=== PATIENT | female | born 1980 | race Caucasian/White ===

== ENCOUNTER 2021-02-07 23:48 | Emergency (ER) | payer OTHER ==
[2021-02-08] MEDS ORDERED: Ondansetron 4 MG Tab.DIS PO ONE ×2 (01:29→03:49)
--- NOTE | 2021-02-08 03:48 | EDM.PDOC ---
ED HPI GENERAL MEDICAL PROBLEM - General Chief Complaint: General Stated Complaint: THROWING UP AND CHEST PAINS Time Seen by Provider: 02/07/21 23:55 - History of Present Illness INITIAL COMMENTS - FREE TEXT/NARRATIVE: 40-year-old female presents the emergency room with nausea and vomiting. For near the last couple of days the patient has had worsening nausea and developed vomiting this evening. She has some upper abdominal discomfort with this as well. She is not aware of any fevers or chills. No diarrhea or constipation. Patient has no history of abdominal surgeries. She has not had symptoms like this in the past. She is otherwise fairly healthy she does take an antidepressant her dose has been stable for the last 10 years. She has 1 or 2 drinks of alcohol a week. Patient is on a road trip and is from [facility] will be back home in a couple of weeks. Chest Pain Score (Numeric/FACES): 5 - Related Data Allergies Allergy/AdvReac Type Severity Reaction Status Date / Time No Known Allergies Allergy Verified 02/08/21 00:03 Home Meds: Home Meds PARoxetine HCl [Paxil] 20 mg PO DAILY 02/08/21 [History] Past Medical History - Past Surgical History GI Surgical History: Reports: Hernia Repair/Other Social & Family History - Tobacco Use Tobacco Use Status *Q: Never Tobacco User Second Hand Smoke Exposure: No - Recreational Drug Use Recreational Drug Use: No ED ROS GENERAL - Review of Systems Review Of Systems: See Below Constitutional: Reports: No Symptoms HEENT: Reports: No Symptoms Respiratory: Reports: No Symptoms Cardiovascular: Reports: No Symptoms Endocrine: Reports: No Symptoms GI/Abdominal: Reports: Abdominal Pain, Nausea, Vomiting. Denies: Constipation, Diarrhea : Reports: No Symptoms Musculoskeletal: Reports: No Symptoms Skin: Reports: No Symptoms Neurological: Reports: No Symptoms ED EXAM, GENERAL - Physical Exam Exam: See Below Exam Limited By: No Limitations General Appearance: Alert, No Apparent Distress Head: Atraumatic, Normocephalic Neck: Normal Inspection, Supple, Non-Tender, Full Range of Motion Respiratory/Chest: No Respiratory Distress, Lungs Clear, Normal Breath Sounds Cardiovascular: Regular Rate, Rhythm, No Edema, No Murmur GI/Abdominal: Normal Bowel Sounds, Soft, Tender (She has mostly right upper quadrant discomfort right over the gallbladder. No other significant abdominal discomfort noted. No lower or mid abdominal discomfort noted with palpation.). No: Guarding, Rigid, Rebound Neurological: Alert, Oriented, Normal Cognition Psychiatric: Normal Affect, Normal Mood #1 Interpretation EKG Date: 02/08/21 Rhythm: NSR Rate (Beats/Min): 67 Lesage: Normal P-Wave: Present QRS: Normal ST-T: Normal QT: Normal Comparison: NA - No Prior EKG EKG Interpretation Comments: Normal EKG Course - Vital Signs Last Recorded V/S: Last Vital Signs Temp 36.4 C 02/08/21 00:01 Pulse 61 02/08/21 00:01 Resp 16 02/08/21 00:01 BP 114/73 02/08/21 00:01 Pulse Ox 100 02/08/21 00:01 - Orders/Labs/Meds Orders: Active Orders 24 hr Category Date Time Status EKG 12 Lead [EKG Documentation Completion] [RC] STAT Care 02/08/21 00:37 Active Abdomen Ltd [US] Stat Exams 02/08/21 01:53 Taken Labs: Laboratory Tests 02/08/21 02/08/21 02/08/21 Range/Units 00:05 00:52 00:52 WBC 12.72 H (3.98-10.04) K/mm3 RBC 4.14 (3.98-5.22) M/mm3 Hgb 12.9 (11.2-15.7) gm/dl Hct 38.6 (34.1-44.9) % MCV 93.2 (79.4-94.8) fl MCH 31.2 (25.6-32.2) pg MCHC 33.4 (32.2-35.5) g/dl RDW Std Deviation 40.3 (36.4-46.3) fL Plt Count 309 (182-369) K/mm3 MPV 9.6 (9.4-12.3) fl Neutrophils % (Manual) 87 H (40-60) % Band Neutrophils % 0 (0-10) % Lymphocytes % (Manual) 8 L (20-40) % Atypical Lymphs % 0 % Immat Monocytes % (Man) 0 Monocytes % (Manual) 4 (2-10) % Eosinophils % (Manual) 1 (0.7-5.8) % Basophils % (Manual) 0 L (0.1-1.2) Metamyelocytes % 0 Myelocytes % 0 Promyelocytes % 0 Blast Cells % 0 Plasma Cell % (Manual) 0 Nucleated RBCs 0.0 % Platelet Estimate Adequate RBC Morph Comment Normal Sodium 141 (136-145) mEq/L Potassium 3.5 (3.5-5.1) mEq/L Chloride 105 (98-107) mEq/L Carbon Dioxide 26 (21-32) mEq/L Anion Gap 13.5 (5-15) BUN 19 H (7-18) mg/dL Creatinine 0.8 (0.55-1.02) mg/dL Est Cr Clr Drug Dosing 79.91 mL/min Estimated GFR (MDRD) > 60 (>60) mL/min BUN/Creatinine Ratio 23.8 H (14-18) Glucose 96 (70-99) mg/dL Calcium 9.1 (8.5-10.1) mg/dL Total Bilirubin 1.4 H (0.2-1.0) mg/dL Direct Bilirubin (0.0-0.2) mg/dl AST 215 H (15-37) U/L ALT 247 H (14-59) U/L Alkaline Phosphatase 123 H (46-116) U/L Troponin I < 0.017 (0.00-0.056) ng/mL Total Protein 7.2 (6.4-8.2) g/dl Albumin 3.6 (3.4-5.0) g/dl Globulin 3.6 gm/dL Albumin/Globulin Ratio 1.0 (1-2) Lipase (73-393) U/L HCG, Qual (NEGATIVE) SARS-CoV-2 RNA (CATRINA) Negative (NEGATIVE) 02/08/21 02/08/21 Range/Units 00:52 00:52 WBC (3.98-10.04) K/mm3 RBC (3.98-5.22) M/mm3 Hgb (11.2-15.7) gm/dl Hct (34.1-44.9) % MCV (79.4-94.8) fl MCH (25.6-32.2) pg MCHC (32.2-35.5) g/dl RDW Std Deviation (36.4-46.3) fL Plt Count (182-369) K/mm3 MPV (9.4-12.3) fl Neutrophils % (Manual) (40-60) % Band Neutrophils % (0-10) % Lymphocytes % (Manual) (20-40) % Atypical Lymphs % % Immat Monocytes % (Man) Monocytes % (Manual) (2-10) % Eosinophils % (Manual) (0.7-5.8) % Basophils % (Manual) (0.1-1.2) Metamyelocytes % Myelocytes % Promyelocytes % Blast Cells % Plasma Cell % (Manual) Nucleated RBCs % Platelet Estimate RBC Morph Comment Sodium (136-145) mEq/L Potassium (3.5-5.1) mEq/L Chloride (98-107) mEq/L Carbon Dioxide (21-32) mEq/L Anion Gap (5-15) BUN (7-18) mg/dL Creatinine (0.55-1.02) mg/dL Est Cr Clr Drug Dosing mL/min Estimated GFR (MDRD) (>60) mL/min BUN/Creatinine Ratio (14-18) Glucose (70-99) mg/dL Calcium (8.5-10.1) mg/dL Total Bilirubin (0.2-1.0) mg/dL Direct Bilirubin 0.40 H (0.0-0.2) mg/dl AST (15-37) U/L ALT (14-59) U/L Alkaline Phosphatase (46-116) U/L Troponin I (0.00-0.056) ng/mL Total Protein (6.4-8.2) g/dl Albumin (3.4-5.0) g/dl Globulin gm/dL Albumin/Globulin Ratio (1-2) Lipase 30 L (73-393) U/L HCG, Qual Negative (NEGATIVE) SARS-CoV-2 RNA (CATRINA) (NEGATIVE) Meds: Medications Discontinued Medications Generic Name Dose Route Start Last Admin Trade Name Freq PRN Reason Stop Dose Admin Ondansetron HCl 4 mg 02/08/21 01:29 02/08/21 01:00 Ondansetron 4 Mg Tab.Dis PO 02/08/21 01:30 4 mg ONETIME ONE Administration Ondansetron HCl 4 mg 02/08/21 03:49 Ondansetron 4 Mg Tab.Dis PO 02/08/21 03:50 ONETIME ONE - Re-Assessments/Exams Free Text/Narrative Re-Assessment/Exam: 02/08/21 04:00 Patient had good relief of symptoms with some Zofran. Labs were obtained she is got elevated transaminases minimally elevated alk phos bilirubin is minimally elevated as well. Gallbladder ultrasound was obtained which only shows hepatic steatosis. Gallbladder shows no evidence of stones no thickening of the gallbladder wall common bile duct looks normal no stones no dilation visualized portion of the pancreas is unremarkable portal venous system appears normal. The cause of her abnormal liver enzymes is unclear this could be related to transient viral illness however is little more concerning with mildly elevated direct bilirubin the patient is on a road trip heading back down to [place] at this point may be reasonable just to give this some time and see how she does have recommended clear liquid diet for the next 24 hours and slowly advance as tolerated given a prescription for Zofran No. 20 from the machine out the waiting room 1 every 6-8 hours and have recommended that she take Pepcid, or famotidine 20 mg a day to see if this helps. The famotidine did not make it to her discharge instructions we hand wrote it on their. Departure - Departure Time of Disposition: 03:48 Disposition: Home, Self-Care 01 Clinical Impression: Nausea and vomiting, Abnormal liver enzymes, Fatty liver - Discharge Information Referrals: PCP,Not In Area [Primary Care Provider] - Forms: ED Department Discharge Additional Instructions: Return to the emergency room with any questions problems or worsening symptoms. If you have worsening symptoms while on your travels do not hesitate to go to the nearest emergency room and get reevaluated Your liver enzymes were found to be elevated this must be rechecked as soon as you get back home. Clear liquid diet for the next 24 hours then slowly advance as tolerated. You were given a prescription for ondansetron, this is an antinausea medication that you got from the machine out in the waiting room take 1 every 6-8 hours as needed for nausea. Sepsis Event Note (ED) - Evaluation Sepsis Screening Result: No Definite Risk - Focused Exam Vital Signs: Vital Signs Temp Pulse Resp BP Pulse Ox 02/08/21 00:01 36.4 C 61 16 114/73 100 - My Orders Last 24 Hours: My Active Orders 02/08/21 00:37 EKG 12 Lead [EKG Documentation Completion] [RC] STAT 02/08/21 01:53 Abdomen Ltd [US] Stat - Assessment/Plan Last 24 Hours: My Active Orders 02/08/21 00:37 EKG 12 Lead [EKG Documentation Completion] [RC] STAT 02/08/21 01:53 Abdomen Ltd [US] Stat
--- NOTE | 2021-02-08 08:39 | US ---
Limited abdominal ultrasound: Multiple real-time images of the upper right abdomen were obtained. Comparison: No prior abdominal imaging is available. Liver is echogenic as compared to the right kidney which is most likely due to fatty infiltration. Liver shows no focal parenchymal abnormality. Pancreas is slightly obscured but is otherwise within normal limits as seen. Gallbladder shows no gallstones. No gallbladder wall thickening or biliary duct dilatation is seen. Right kidney shows no hydronephrosis or mass. Right kidney has a length of 10.2 cm. Inferior vena cava is patent. Proximal aorta shows no aneurysm. Main portal vein shows normal hepatopedal flow. Impression: 1. Fatty infiltration within the liver. 2. Nothing acute is otherwise seen on right upper quadrant abdominal ultrasound. Diagnostic code #2 I agree with preliminary report from [facility], finalized on 21, 4:26 AM CDT, code 1
== END 2021-02-08 04:05 | disposition home or self-care (01) ==
LOC: JD.ED 23:48
DX: R11.2 Nausea with vomiting, unspecified (principal); K76.0 Fatty (change of) liver, not elsewhere classified; R74.8 Abnormal levels of other serum enzymes; Z79.899 Other long term (current) drug therapy; Z20.822 Contact with and (suspected) exposure to COVID-19
CPT/HCPCS: 36415; 76705; 80053; 82248; 83690; 84484; 84703; 85007; 85027; 87635; 93005; 99284; A9270; 93010; 99283; U0002